=== PATIENT | male | born 1970 | race Caucasian/White ===

== ENCOUNTER 2021-08-24 09:16 | Emergency (ER) | payer BC, MEDICAID ==
[~2021-08-24] VITALS: Ht 185.4 cm; Wt 88.6 kg
[~2021-08-24 09:16] MED LIST: METF-446 PO
[2021-08-24 10:53] LABS: BASOPHILS % (AUTO) 0.9 % (0.0-2.0); EOSINOPHILS % (AUTO) 2.8 % (1.0-6.0); HEMATOCRIT 30.4 % (41-53); HEMOGLOBIN 10.3 g/dL (13.5-17.5); LYMPHOCYTES # (AUTO) 0.7 K/uL (1.0-4.8); LYMPHOCYTES % (AUTO) 10.9 % (22.0-44.0); MEAN CORPUSCULAR HEMOGLOBIN 33.2 pg (26.0-34.0); MEAN CORPUSCULAR HGB CONC 33.9 G/dL (31.0-37.0); MEAN CORPUSCULAR VOLUME 98 fL (80-100); MONOCYTES # (AUTO) 0.6 K/uL (0.1-1.0); MONOCYTES % (AUTO) 9.6 % (2.0-9.0); NEUTROPHILS # (AUTO) 4.7 K/uL (1.8-7.7); NEUTROPHILS % (AUTO) 75.8 % (40.0-70.0); PLATELET COUNT (AUTO) 309 K/uL (150-450); RED BLOOD CELL COUNT(AUTO) 3.11 MIL/uL (4.50-5.90)
[2021-08-24 11:03] LABS: CALCIUM, TOTAL 7.5 mg/dL (8.8-10.5); CREATININE 10.66 mg/dL (0.60-1.30); POTASSIUM 4.2 mmol/L (3.5-5.1)
[2021-08-24 11:08] LABS: ALBUMIN 2.9 g/dL (3.4-5.0); BILIRUBIN,TOTAL 0.3 mg/dL (0.1-1.0)
[2021-08-24] MEDS ORDERED: FentaNYL CITRATE PF 100 MCG/2 ML VIAL IVP ONE ×5 (11:15→16:30)
[2021-08-24] MEDS ORDERED: ONDANSETRON HCL 4 MG/2 ML VIAL IVP ONE (11:15)
[2021-08-24 11:39] LABS: PROTHROMBIN TIME 10.2 SEC (9.4-11.6)
[2021-08-24 15:18] LABS: HEMOGLOBIN A1C 8.7 % (3.8-5.6)
[2021-08-24 16:31] VITALS: BP 154/83
[2021-08-24] MEDS ORDERED: HYDR-4723 PO (16:38)
[2021-08-24] MEDS ORDERED: POLY238P PO (16:38)
[2021-08-24] MEDS ORDERED: ONDA-104 PO (16:38)
== END 2021-08-24 16:58 | disposition home or self-care (01) ==
LOC: EMS 09:16
DX: S42.252A Displaced fracture of greater tuberosity of left humerus, initial encounter for closed fracture (principal); E11.9 Type 2 diabetes mellitus without complications; Z79.84 Long term (current) use of oral hypoglycemic drugs; Z96.612 Presence of left artificial shoulder joint; Z88.5 Allergy status to narcotic agent; W11.XXXA Fall on and from ladder, initial encounter; Y93.89 Activity, other specified; Y92.098 Other place in other non-institutional residence as the place of occurrence of the external cause; Y99.8 Other external cause status
CPT/HCPCS: 29505; 36415; 71045; 73030; 73200; 80053; 82962; 83036; 83880; 85025; 85610; 93005; 93306; 96374; 96376; 99285; J2405; J3010